=== PATIENT | female | born 1955 | race Hispanic/Latino ===

== ENCOUNTER 2018-09-23 19:32 | Observation (INO) | payer MEDICARE ==
[~2018-09-23] VITALS: Ht 152.4 cm; Wt 82.8 kg
[~2018-09-23 19:32] MED LIST: ATOR40TA69 PO; CARV25TA PO; CLOP75TA32 PO; ENAL20TA PO; ERGO500014 PO; FURO40TA7 PO; INSLAN SQ; ISOS60TA4 PO; NITR0.4T50 SL; RANO500T2 PO; SIME80TA12 PO
[2018-09-23] MEDS ORDERED: NITROGLYCERIN 50 MG/D5% WATER 1 BOT ONE (19:43)
[2018-09-23 19:51] LABS: BASOPHILS % (AUTO) 0.8 % (0.0-5.0); EOSINOPHILS % (AUTO) 4.7 % (0.0-8.0); HEMATOCRIT 34.5 % (36-48); LYMPHOCYTES % (AUTO) 23.7 % (21.0-51.0); MEAN CORPUSCULAR HEMOGLOBIN 29.2 pg (27.0-33.0); MEAN CORPUSCULAR HGB CONC 33.4 g/dL (32.0-36.0); MEAN CORPUSCULAR VOLUME 87.3 fL (79-99); MONOCYTES % (AUTO) 6.9 % (3.0-13.0); NEUTROPHILS % (AUTO) 63.9 % (40.0-77.0); PLATELET COUNT (AUTO) 170 K/uL (130-400); RED BLOOD CELL COUNT(AUTO) 3.95 MIL/uL (4.00-5.50); RED CELL DISTRIBUTION WIDTH 13.5 % (11.0-15.5); WHITE BLOOD COUNT (AUTO) 8.3 K/uL (4.8-10.8)
[2018-09-23 20:01] LABS: CREATININE 1.8 mg/dL (0.5-1.5); POTASSIUM 4.2 mmol/L (3.5-5.1)
[2018-09-23 20:10] LABS: ALBUMIN 3.1 g/dL (3.5-5.0); BILIRUBIN,TOTAL 0.4 mg/dL (0.2-1.0); INR 0.99 (0.85-1.15); PARTIAL THROMBOPLASTIN TIME 27.7 SEC (26.3-35.5); PROTHROMBIN TIME 10.4 SEC (9.6-11.6); TOTAL PROTEIN, SERUM 7.1 g/dL (6.0-8.3)
[2018-09-23] MEDS ORDERED: ACETAMINOPHEN 325 MG TAB PO PRN (21:15)
[2018-09-23] MEDS ORDERED: MORPHINE SULFATE 4 MG/1ML SYG IV PRN (21:15)
[2018-09-23] MEDS: NITROGLYCERIN 1GM/1 INCH PACKET TD SCH (21:15)
[2018-09-23] MEDS ORDERED: ONDANSETRON HCL 4 MG/2 ML VIAL IV PRN (21:15)
[2018-09-23] MEDS ORDERED: SIMETHICONE 80 MG TAB.CHEW PO PRN (21:15)
[2018-09-23] MEDS ORDERED: NITROGLYCERIN 1GM/1 INCH PACKET TD ONE (23:30)
[2018-09-24 05:08] LABS: BASOPHILS % (AUTO) 0.8 % (0.0-5.0); EOSINOPHILS % (AUTO) 6.1 % (0.0-8.0); LYMPHOCYTES % (AUTO) 23.9 % (21.0-51.0); MEAN CORPUSCULAR HEMOGLOBIN 29.7 pg (27.0-33.0); MEAN CORPUSCULAR HGB CONC 33.7 g/dL (32.0-36.0); MONOCYTES % (AUTO) 7.9 % (3.0-13.0); NEUTROPHILS % (AUTO) 61.3 % (40.0-77.0); PLATELET COUNT (AUTO) 171 K/uL (130-400); RED BLOOD CELL COUNT(AUTO) 3.53 MIL/uL (4.00-5.50); RED CELL DISTRIBUTION WIDTH 13.4 % (11.0-15.5); WHITE BLOOD COUNT (AUTO) 7.3 K/uL (4.8-10.8)
[2018-09-24] MEDS: NITROGLYCERIN 1GM/1 INCH PACKET TD SCH ×3 (05:15→22:00)
[2018-09-24 05:20] LABS: CREATININE 1.7 mg/dL (0.5-1.5); POTASSIUM 3.9 mmol/L (3.5-5.1)
[2018-09-24 05:26] LABS: ALBUMIN 2.8 g/dL (3.5-5.0); BILIRUBIN,TOTAL 0.2 mg/dL (0.2-1.0); TOTAL PROTEIN, SERUM 6.3 g/dL (6.0-8.3)
[2018-09-24] MEDS: CARVEDILOL 25 MG TABLET PO SCH ×2 (09:00→22:00)
[2018-09-24] MEDS: CLOPIDOGREL BISULFATE 75 MG TAB PO SCH (09:00)
[2018-09-24] MEDS ORDERED: FUROSEMIDE 40 MG TABLET PO SCH (09:00)
[2018-09-24] MEDS: FAMOTIDINE/PF 20 MG/2 ML VIAL IV SCH (09:00)
[2018-09-24] MEDS ORDERED: ATORVASTATIN CALCIUM 40 MG TABLET PO SCH ×2 (09:00→21:00)
[2018-09-24] MEDS: ISOSORBIDE MONO 60 MG TAB.SR PO SCH (09:00)
[2018-09-24] MEDS: ASPIRIN 325 MG TABLET PO SCH (09:00)
[2018-09-24] MEDS: RANOLAZINE 500 MG TAB.SR.12H PO SCH ×2 (09:00→22:00)
[2018-09-24] MEDS ORDERED: ENALAPRIL MALEATE 10 MG TABLET PO SCH (09:00)
[2018-09-24] MEDS: ENOXAPARIN SODIUM 30 MG/0.3 ML SQ SCH (09:00)
[2018-09-24] MEDS ORDERED: NITROGLYCERIN 1GM/1 INCH PACKET TD ONE (10:00)
[2018-09-24] MEDS ORDERED: ASPIRIN 325 MG TABLET ONE (10:03)
[2018-09-24] MEDS ORDERED: CLOPIDOGREL BISULFATE 75 MG TAB ONE (10:03)
[2018-09-24] MEDS ORDERED: ATORVASTATIN CALCIUM 20 MG TABLET ONE (10:03)
[2018-09-24] MEDS ORDERED: ISOSORBIDE MONO 30MG TAB SR PO ONE (10:04)
[2018-09-24] MEDS ORDERED: CARVEDILOL 12.5 MG TABLET PO ONE (10:04)
[2018-09-24] MEDS ORDERED: ENOXAPARIN SODIUM 30 MG/0.3 ML SQ ONE (10:04)
[2018-09-24] MEDS ORDERED: FAMOTIDINE/PF 20 MG/2 ML VIAL IV ONE (10:05)
[2018-09-24] MEDS ORDERED: CLOP75TA32 PO (11:38)
[2018-09-24] MEDS ORDERED: RANO500T2 PO (11:38)
[2018-09-24] MEDS ORDERED: IRON-6 PO (11:38)
[2018-09-24] MEDS ORDERED: FOLI1TAB61 PO (11:38)
[2018-09-24] MEDS ORDERED: FURO40TA5 PO (11:38)
[2018-09-24 11:41] VITALS: BP 156/63
[2018-09-24 13:00] VITALS: BP 145/57
[2018-09-24 16:00] VITALS: BP 159/67
[2018-09-24] MEDS ORDERED: DEXTROSE 50%-WATER 50 ML DISP.SYRIN IV PRN (18:30)
[2018-09-24] MEDS ORDERED: GLUCAGON 1MG KIT 1 MG ML IM PRN (18:30)
[2018-09-24 20:00] VITALS: BP 149/68
[2018-09-24] MEDS: INSULIN HUMULIN R 100 UNIT/ML 3ML SQ SCH (22:03)
[2018-09-25] VITALS (12 sets, daily range): BP systolic 122–190; BP diastolic 53–88
[2018-09-25] MEDS ORDERED: CLONIDINE HCL 0.1 MG TABLET ONE (00:40)
[2018-09-25] MEDS ORDERED: CLONIDINE HCL 0.1 MG TABLET PO PRN (00:45)
[2018-09-25 03:34] LABS: HEMATOCRIT 32.4 % (36-48); MEAN CORPUSCULAR HEMOGLOBIN 28.7 pg (27.0-33.0); MEAN CORPUSCULAR HGB CONC 32.8 g/dL (32.0-36.0); MEAN CORPUSCULAR VOLUME 87.5 fL (79-99); NUCLEATED RED BLOOD CELLS 0.1 % (0.0-0.19); PLATELET COUNT (AUTO) 153 K/uL (130-400); RED CELL DISTRIBUTION WIDTH 13.5 % (11.0-15.5); WHITE BLOOD COUNT (AUTO) 7.2 K/uL (4.8-10.8)
[2018-09-25 03:49] LABS: ALBUMIN 2.7 g/dL (3.5-5.0); BILIRUBIN,TOTAL 0.2 mg/dL (0.2-1.0); CREATININE 1.4 mg/dL (0.5-1.5); POTASSIUM 4.1 mmol/L (3.5-5.1); TOTAL PROTEIN, SERUM 6.5 g/dL (6.0-8.3)
[2018-09-25] MEDS: NITROGLYCERIN 1GM/1 INCH PACKET TD SCH ×2 (05:18→13:15)
[2018-09-25 05:38] LABS: INR 1.03 (0.85-1.15); PARTIAL THROMBOPLASTIN TIME 27.3 SEC (26.3-35.5); PROTHROMBIN TIME 10.8 SEC (9.6-11.6)
[2018-09-25] MEDS: INSULIN HUMULIN R 100 UNIT/ML 3ML SQ SCH ×3 (05:43→16:51)
[2018-09-25] MEDS ORDERED: NITROGLYCERIN 5 MG/ML 10 ML VIAL IV ONE (07:07)
[2018-09-25] MEDS ORDERED: IOHEXOL 350 MG/ML 100ML INFUS..BTL IV ONE (07:07)
[2018-09-25] MEDS ORDERED: BIVALIRUDIN 250 MG/VIAL IV ONE (07:07)
[2018-09-25] MEDS ORDERED: IOHEXOL-350 50ML VIAL IV ONE (07:08)
[2018-09-25] MEDS ORDERED: LIDOCAINE HCL 2% 20ML ONE (07:08)
[2018-09-25] MEDS ORDERED: MIDAZOLAM HCL 1 MG/ML 2ML VIAL ONE (07:43)
[2018-09-25] MEDS ORDERED: FENTANYL CITRATE PF 50 MCG/1 ML 2ML VIAL ONE (07:43)
[2018-09-25] MEDS ORDERED: SODIUM CHLORIDE 0.9% 1000ML 1,000 ML IV SCH (08:50)
[2018-09-25] MEDS: ENOXAPARIN SODIUM 30 MG/0.3 ML SQ SCH (09:00)
[2018-09-25] MEDS: ASPIRIN 325 MG TABLET PO SCH (09:00)
[2018-09-25] MEDS ORDERED: AMLODIPINE BESYLATE 5 MG TAB PO SCH (09:00)
[2018-09-25] MEDS: FAMOTIDINE/PF 20 MG/2 ML VIAL IV SCH (10:27)
[2018-09-25] MEDS: RANOLAZINE 500 MG TAB.SR.12H PO SCH (10:28)
[2018-09-25] MEDS: CLOPIDOGREL BISULFATE 75 MG TAB PO SCH (10:28)
[2018-09-25] MEDS: ISOSORBIDE MONO 60 MG TAB.SR PO SCH (10:28)
[2018-09-25] MEDS: CARVEDILOL 25 MG TABLET PO SCH (10:28)
== END 2018-09-25 18:21 | disposition home or self-care (01) ==
LOC: EDH 19:32 → EDHIP 21:00 → 2AH 09-24 12:58
PROVIDERS: ADMIT Internal Medicine; ATTEND Internal Medicine
DX: I25.110 Atherosclerotic heart disease of native coronary artery with unstable angina pectoris (principal); E11.65 Type 2 diabetes mellitus with hyperglycemia; I24.9 Acute ischemic heart disease, unspecified; I11.0 Hypertensive heart disease with heart failure; I50.42 Chronic combined systolic (congestive) and diastolic (congestive) heart failure; E66.9 Obesity, unspecified; E78.5 Hyperlipidemia, unspecified; I25.2 Old myocardial infarction; I25.5 Ischemic cardiomyopathy; Z72.0 Tobacco use; Z79.4 Long term (current) use of insulin
CPT/HCPCS: 36252; 36415 ×3; 71045; 80053 ×3; 82550; 82948 ×5; 83874; 84484 ×2; 85025 ×2; 85027; 85610 ×2; 85730 ×2; 93005 ×2; 93458; 96372 ×2; 96374; 99284; C1760; C1894 ×2; G0378 ×45; J1644; J1650; J1815 ×3; J2250; J3010; J3490 ×5; J7030; Q9965; Q9967 ×2; 96360; 96361; 99156; 99157; J0583

== ENCOUNTER 2022-03-25 19:27 | Observation (INO) | payer OTHER, MEDICARE ==
[~2022-03-25] VITALS: Ht 147.3 cm; Wt 77.5 kg
[~2022-03-25 19:27] MED LIST changes: -ENAL20TA PO; -ERGO500014 PO; +FOLI1TAB61 PO; +FURO40TA5 PO; -FURO40TA7 PO; +IRON-6 PO; -ISOS60TA4 PO; +ISOS60TA77 PO; -SIME80TA12 PO
[2022-03-25 20:06] LABS: EOSINOPHILS % (AUTO) 3.9 % (0.0-8.0); HEMATOCRIT 35.3 % (36-48); LYMPHOCYTES % (AUTO) 14.2 % (21.0-51.0); MEAN CORPUSCULAR HEMOGLOBIN 27.3 pg (27.0-33.0); MEAN CORPUSCULAR HGB CONC 29.7 g/dL (32.0-36.0); MEAN CORPUSCULAR VOLUME 91.9 fL (79-99); MONOCYTES % (AUTO) 7.5 % (3.0-13.0); NEUTROPHILS % (AUTO) 73.2 % (40.0-77.0); PLATELET COUNT (AUTO) 213 K/uL (130-400); RED BLOOD CELL COUNT(AUTO) 3.84 MIL/uL (4.00-5.50); RED CELL DISTRIBUTION WIDTH 16.8 % (11.0-15.5); WHITE BLOOD COUNT (AUTO) 5.9 K/uL (4.8-10.8)
[2022-03-25 20:17] LABS: CREATININE 1.3 mg/dL (0.5-1.5); POTASSIUM 4.6 mmol/L (3.5-5.1)
[2022-03-25 20:26] LABS: ALBUMIN 3.2 g/dL (3.5-5.0); BILIRUBIN,TOTAL 0.6 mg/dL (0.2-1.0)
[2022-03-25 20:38] LABS: B-TYPE NATRIURETIC PEPTIDE 1720 pg/mL (0-100)
[2022-03-25] MEDS: BUMETANIDE 1MG/4ML VIAL IVP SCH (21:26)
[2022-03-25] MEDS: FUROSEMIDE 20MG VIAL IV SCH (21:55)
[2022-03-25] MEDS ORDERED: IPRATROPIUM/ALBUTEROL SULFATE 3 ML SOLUTION IH PRN (22:00)
[2022-03-25] MEDS ORDERED: ACETAMINOPHEN 325 MG TAB PO PRN ×2 (22:00)
[2022-03-25] MEDS ORDERED: LACTULOSE 20 GM/30 ML UDCUP PO PRN (22:00)
[2022-03-25] MEDS ORDERED: ONDANSETRON 4MG INJ IV PRN (22:00)
[2022-03-25] MEDS ORDERED: LORA10TA7 PO (23:37)
[2022-03-25] MEDS ORDERED: GLIM2TAB30 PO (23:37)
[2022-03-25] MEDS ORDERED: FOLI1TAB61 PO (23:37)
[2022-03-25] MEDS ORDERED: FOLI1TAB85 PO (23:37)
[2022-03-25] MEDS ORDERED: CHLO25TA3 PO (23:38)
[2022-03-26 00:49] VITALS: BP 145/64
[2022-03-26 04:00] VITALS: BP 140/84
[2022-03-26 04:47] LABS: BASOPHILS % (AUTO) 1.3 % (0.0-5.0); EOSINOPHILS % (AUTO) 4.7 % (0.0-8.0); HEMATOCRIT 33.4 % (36-48); LYMPHOCYTES % (AUTO) 17.8 % (21.0-51.0); MEAN CORPUSCULAR HEMOGLOBIN 26.7 pg (27.0-33.0); MEAN CORPUSCULAR HGB CONC 29.6 g/dL (32.0-36.0); MONOCYTES % (AUTO) 9.4 % (3.0-13.0); NEUTROPHILS % (AUTO) 66.4 % (40.0-77.0); PLATELET COUNT (AUTO) 220 K/uL (130-400); RED BLOOD CELL COUNT(AUTO) 3.71 MIL/uL (4.00-5.50); RED CELL DISTRIBUTION WIDTH 16.6 % (11.0-15.5); WHITE BLOOD COUNT (AUTO) 7.1 K/uL (4.8-10.8)
[2022-03-26 05:00] LABS: B-TYPE NATRIURETIC PEPTIDE 1740 pg/mL (0-100)
[2022-03-26 05:15] LABS: CREATININE 1.3 mg/dL (0.5-1.5); POTASSIUM 4.7 mmol/L (3.5-5.1)
[2022-03-26] MEDS: FUROSEMIDE 20MG VIAL IV SCH ×3 (06:08→21:22)
[2022-03-26 07:30] VITALS: BP 144/70
[2022-03-26] MEDS: FAMOTIDINE 20MG TAB PO SCH (10:01)
[2022-03-26 11:53] VITALS: BP 145/66
[2022-03-26 15:32] VITALS: BP 146/72
[2022-03-26] MEDS ORDERED: DEXTROSE 50%-WATER 50 ML DISP.SYRIN IV PRN (18:30)
[2022-03-26] MEDS ORDERED: GLUCAGON 1MG KIT 1 MG ML IM PRN (18:30)
[2022-03-26 19:39] VITALS: BP 152/79
[2022-03-26] MEDS: INSULIN HUMULIN R 100 UNIT/ML 3ML SQ SCH (21:00)
[2022-03-26] MEDS: BUMETANIDE 1MG/4ML VIAL IVP SCH (21:23)
[2022-03-27 04:37] VITALS: BP 160/86
[2022-03-27] MEDS: FUROSEMIDE 20MG VIAL IV SCH ×2 (05:31→13:11)
[2022-03-27] MEDS: INSULIN HUMULIN R 100 UNIT/ML 3ML SQ SCH ×3 (05:40→15:34)
[2022-03-27 05:44] LABS: CREATININE 1.3 mg/dL (0.5-1.5)
[2022-03-27 05:47] LABS: HEMATOCRIT 45.6 % (36-48); MEAN CORPUSCULAR HEMOGLOBIN 26.6 pg (27.0-33.0); MEAN CORPUSCULAR HGB CONC 29.8 g/dL (32.0-36.0); MEAN CORPUSCULAR VOLUME 89.2 fL (79-99); RED BLOOD CELL COUNT(AUTO) 5.11 MIL/uL (4.00-5.50); RED CELL DISTRIBUTION WIDTH 16.6 % (11.0-15.5)
[2022-03-27] MEDS: FAMOTIDINE 20MG TAB PO SCH (07:27)
[2022-03-27 07:57] VITALS: BP 147/66
[2022-03-27] MEDS ORDERED: **HM**(Chlorthalidone 25 MG PO SCH (09:00)
[2022-03-27 11:25] VITALS: BP 128/62
[2022-03-27 13:44] LABS: PHOSPHORUS 4.5 mg/dL (2.5-4.9)
[2022-03-27 15:55] VITALS: BP 157/71
[2022-03-27] MEDS ORDERED: NIFEDIPINE ER 30 MG TAB PO SCH (17:30)
[2022-03-27] MEDS ORDERED: CARVEDILOL 3.125 MG TABLET PO ONE (17:30)
[2022-03-27 17:34] VITALS: BP 157/71
[2022-03-27] MEDS ORDERED: TORS20TA4 PO (17:42)
[2022-03-27] MEDS ORDERED: CARV3.12 PO (17:42)
[2022-03-27] MEDS ORDERED: NIFE-40 PO (17:42)
== END 2022-03-27 18:42 | disposition home or self-care (01) ==
LOC: EDH 19:27 → EDHIP 21:37 → 2DH 03-26 00:10
PROVIDERS: ADMIT Internal Medicine; ATTEND Internal Medicine
DX: I13.0 Hypertensive heart and chronic kidney disease with heart failure and stage 1 through stage 4 chronic kidney disease, or unspecified chronic kidney disease (principal); E11.22 Type 2 diabetes mellitus with diabetic chronic kidney disease; I50.23 Acute on chronic systolic (congestive) heart failure; N18.31 Chronic kidney disease, stage 3a; J81.1 Chronic pulmonary edema; N17.9 Acute kidney failure, unspecified; R79.89 Other specified abnormal findings of blood chemistry; I25.10 Atherosclerotic heart disease of native coronary artery without angina pectoris; E78.5 Hyperlipidemia, unspecified; E78.00 Pure hypercholesterolemia, unspecified; I25.2 Old myocardial infarction; D64.9 Anemia, unspecified; R09.02 Hypoxemia; Z91.14 Patient's other noncompliance with medication regimen; Z79.4 Long term (current) use of insulin; Z79.899 Other long term (current) drug therapy
CPT/HCPCS: 36415 ×3; 71045; 80048 ×2; 80053; 82948 ×6; 83735; 83880 ×3; 84100; 84484; 85025 ×2; 85027; 85378; 93005; 93970; 96374; 96375 ×2; 96376 ×2; 99285; G0378 ×45; J1940 ×5; J3490 ×2; J7070